=== PATIENT | female | born 1950 | race Caucasian/White ===

== ENCOUNTER 2016-09-10 15:12 | Emergency (ER) | payer MEDICARE ==
[2016-09-10 17:26] LABS: HEMOGLOBIN 13.6 gm/dl (12.3-15.3); RED BLOOD COUNT 4.43 M/UL (4.00-5.10); WHITE BLOOD COUNT 8.8 K/UL (4.5-11.0)
[2016-09-10 17:46] LABS: BUN/CREATININE RATIO 18 (0-10)
== END 2016-09-10 18:50 | disposition home or self-care (01) ==
LOC: ER1 15:12
PROVIDERS: Emergency Medicine
DX: K57.92 Diverticulitis of intestine, part unspecified, without perforation or abscess without bleeding (principal)
CPT/HCPCS: 36415; 80053; 81001; 82150; 83605; 83690; 85025; 96374; 96375; 99284; J1956; J2405; J7030